=== PATIENT | male | born 1950 | race Caucasian/White ===

== ENCOUNTER 2017-03-08 07:01 | Day surgery (SDC) | payer BC ==
[2017-03-08] VITALS (9 sets, daily range): BP systolic 115–152; BP diastolic 59–82; PULSE 50–65; RESP 14–18; Ht 182.9 cm; Wt 79.0 kg
[~2017-03-08] VITALS: Ht 182.9 cm; Wt 79.0 kg
[~2017-03-08 07:01] MED LIST: SOD CHLORIDE 0.9% 1,000 ML IV SCH
[2017-03-08] MEDS ORDERED: GLYB5TAB3 PO (07:52)
[2017-03-08] MEDS ORDERED: VALS160T20 PO (07:55)
[2017-03-08] MEDS ORDERED: GLYB1TAB3 PO (07:55)
[2017-03-08] MEDS ORDERED: PRAS10TA6 PO (07:56)
[2017-03-08 08:21] LABS: ADD SCAN DIFF NO; BASOPHILS % 0.3 % (0.0-2.0); EOSINOPHILS # 0.2 10^3/ul (0.0-0.5); EOSINOPHILS % 3.3 % (0.0-7.0); HEMATOCRIT 35.8 % (42.0-52.0); HEMOGLOBIN 12.3 g/dl (14.0-18.0); LYMPHOCYTES % 32.2 % (15.0-51.0); MEAN CORPUSCULAR HEMOGLOBIN 31.8 pg (29.0-33.0); MEAN CORPUSCULAR HGB CONC 34.4 g/dl (32.0-37.0); MEAN CORPUSCULAR VOLUME 92.5 fl (82.0-101.0); MEAN PLATELET VOLUME 9.5 fl (7.4-10.4); MONOCYTE # 0.5 10^3/ul (0.3-0.9); MONOCYTES % 8.7 % (0.0-11.0); NEUTROPHIL # 3.4 10^3/ul (1.6-7.5); PLATELET COUNT 129 10^3/UL (140-415); RED BLOOD COUNT 3.87 10^6/ul (4.70-6.10); RED CELL DISTRIBUTION WIDTH 13.2 % (11.5-14.5); WHITE BLOOD COUNT 6.1 10^3/ul (4.8-10.8)
[2017-03-08] MEDS ORDERED: LIDOCAINE 1% (MDV) 20 ML INJ ONE (08:38)
[2017-03-08] MEDS ORDERED: ASPIRIN 325 MG TAB ONE (08:38)
[2017-03-08] MEDS ORDERED: HEPARIN 1000 UNITS/ML 10 ML INJ ONE (08:38)
[2017-03-08] MEDS ORDERED: VERAPAMIL 5 MG INJ ONE (08:39)
[2017-03-08] MEDS ORDERED: NITROGLYCERIN (IC) 100 MCG/ML INJ ONE (08:39)
[2017-03-08 08:55] LABS: CALCIUM 9.7 mg/dl (8.4-10.2); CREATININE 0.97 mg/dl (0.61-1.24); INR 0.96; POTASSIUM 4.3 mmol/L (3.5-5.1); PROTIME 12.8 Sec (12.2-14.2)
[2017-03-08 08:56] LABS: PARTIAL THROMBOPLASTIN TIME 29.8 Sec (25.0-35.0)
[2017-03-08] MEDS ORDERED: FENTAnyl 50 MCG/ML VIAL ONE (08:56)
[2017-03-08] MEDS ORDERED: MIDAZOLAM 1 MG/ML 2 ML INJ ONE (08:56)
[2017-03-08] MEDS ORDERED: IODIXANOL LOCM 100 ML BTL ONE (08:57)
[2017-03-08] MEDS ORDERED: ADENOSINE 90 MG in SOD CHLORIDE 0.9% 90 ML IV SCH (10:00)
[2017-03-08] MEDS ORDERED: SOD CHLORIDE 0.9% 1,000 ML IV SCH (10:34)
[2017-03-08] MEDS ORDERED: AL HYDROX/MG HYDROX/SIMETH 30 ML CUP PO PRN (11:00)
[2017-03-08] MEDS ORDERED: INSULIN REGULAR, HUMAN 100 UNIT/1 ML 3ML VIAL SC ONE (11:00)
[2017-03-08] MEDS ORDERED: ONDANSETRON 4 MG INJ IV PRN (11:00)
--- NOTE | 2017-03-08 11:37 | OPR ---
DATE OF OPERATION: 03/08/2017 GERIATRIC CARE MANAGER: Jose F Reilly MD PRIMARY GOVERNMENT PROPERTY INSPECTOR: Destin Lawrence MD PROCEDURES PERFORMED: 1. Left heart catheterization. 2. FFR study of the left main, left anterior descending. 3. IVUS study of the left main, left anterior descending. PREOPERATIVE DIAGNOSES: 1. Coronary artery disease. 2. Smoking. 3. Diabetes. 4. Status post PCI. POSTOPERATIVE DIAGNOSIS: 1. Obstructive coronary artery disease involving the left main. HISTORY: Mr. Haddad is a 66-year-old Palestinian man with past medical history of diabetes, hypertension, hyperlipidemia and recent PCI to the LAD as well as diagonal artery at [facility]. The patient follows with Dr. Destin Lawrence who evaluated the patient and noted the patient and continued significant exertional chest pain c/w CCS III angina. He was therefore referred to cardiac catheterization lab, given his medical history. All risks, benefits were explained to patient prior to arrival in catheterization lab. PROCEDURE DESCRIPTION: Right wrist was prepped and draped in usual sterile fashion and anesthetized with 1% lidocaine solution. A 6-Burmese Slender sheath was placed in the right radial artery without difficulty using the through and through technique. Intra -arterial nitroglycerin and verapamil were given. IV heparin was given. Cineangiograms were then obtained of the left and right coronary artery using a 5-Burmese TIG 4.0 catheter. The catheter was then advanced over a wire to the left ventricle and pressures were obtained. Given left main disease, decision was made to proceed with FFR study and possible IVUS study. FFR procedure description: Additional IV heparin was given and ACT was checked and confirmed to be in therapeutic range. The TIG catheter had been removed and exchanged for a 6-Burmese FL3.5 guiding catheter. This was used to engage the left coronary. There was significant dampening noted upon engagement of the left coronary. An FFR wire was then introduced into the ascending aorta and normalized as per protocol. The FFR wire was then advanced to the left circumflex and adenosine infusion started at 180 mcg/kg per minute IV and lowest FFR value of the left main to the circumflex was 0.78. The FFR wire was then withdrawn and advanced to the distal LAD and FFR value of 0.62 was obtained. At this point, it is evident this was significant left main disease and IVUS study was then performed of the LAD and left main over the FFR wire. The IVUS catheter was then removed. Given severe disease and questionable compliance with medication as well as smoking history, diabetes decision was made to stop at this point and discuss risks, benefits of percutaneous versus bypass surgery with patient and family prior to PCI. The patient was in stable condition. There were no complications. All wires and catheters removed. Hemostasis obtained with a TR band. ESTIMATED BLOOD LOSS: Less than 20 mL. FINDINGS: HEMODYNAMICS: LVEDP is 19 mmHg. No significant gradient on LV to AO pullback. CORONARY ANATOMY: 1. Left main with ostial proximal 60% stenosis. On IVUS study MLA is 6.2 mm2. The mid left main has a diameter of 4.5 x 3.8 mm. 2. Left anterior descending artery is a large wraparound artery. Proximal has a 40% to 50% stenosis and a large diagonal 1 branch. This is followed by a patent stent with moderate in-stent restenosis about 50%. There is JOSE MIGUEL 3 flow throughout the vessel. The distal LAD has mild luminal irregularities. There is a large D1 branch without disease. Smaller D2 branch is jailed by the LAD stent with an ostial 60% stenosis. There is a D3 branch which is long and extends to the apex. There is a proximal stent which is widely patent. The IVUS study showed good expansion and apposition of the mid LAD stent. 3. Left circumflex: Small nondominant artery without significant disease. 4. Right coronary artery: A large, dominant artery. The proximal has 20% disease. The mid RCA with 20% disease and distal RCA branches early into large RPDA and RPL branches which are with luminal irregularities. FFR STUDY RESULTS: 1. Left main FFR study with wire in left circumflex 0.78. FFR LM/LAD with wire in mid LAD is 0.62. SUMMARY: 1. Obstructive coronary artery disease with history of PCI with the mid LAD which is patent with moderate ISR. 2. Significant ostial with proximal left main stenosis 60% with abnormal FFR study. 3. Mild to moderate elevated left ventricular filling pressures. RECOMMENDATIONS: Risks, benefits discussed with patient and family. The decision is made to proceed with left main stenting. The patient is adamant that he is compliant with medications; however, continues to smoke. Smoking cessation is urged. Risks, benefits of coronary artery bypass graft also discussed with the family; however, they would like to avoid surgical procedure this time. We will plan for DATA ASSISTANT left main; however, would like to add statin and beta salvatore therapy prior to procedure. 1. Continue aspirin 81 mg daily as well as Effient 10 mg daily. 2.. Continue valsartan. 3. Add a moderate dose statin as well as beta salvatore therapy. 4. Return for PCI of ostial LM The above findings were discussed with the patient's primary development analyst, Dr. Lawrence, who was in agreement with treatment plan. Dictated By: JOSE F HUTCHINS/RENO Conf#: [id number] DID#: [id number] MTDD
== END 2017-03-08 14:07 | disposition home or self-care (01) ==
LOC: SDS 07:01
PROVIDERS: ATTEND Internal Medicine Interventional Cardiology
DX: I25.10 Atherosclerotic heart disease of native coronary artery without angina pectoris (principal); E11.9 Type 2 diabetes mellitus without complications; I10 Essential (primary) hypertension
CPT/HCPCS: 80048; 82962; 85025; 85610; 85730; 93458; C1769; C1887; J0153; J1644; J1815; J2250; J3010; Q9967

== ENCOUNTER 2017-03-22 14:06 | Observation (INO) | payer BC ==
[~2017-03-22] VITALS: Ht 182.9 cm; Wt 79.0 kg
[2017-03-22] VITALS (10 sets, daily range): BP systolic 111–175; BP diastolic 59–84; PULSE 55–66; RESP 13–20
[~2017-03-22 14:06] MED LIST changes: +GLYB1TAB3 PO; +GLYB5TAB3 PO; +PRAS10TA6 PO; -SOD CHLORIDE 0.9% 1,000 ML IV SCH; +VALS160T20 PO
[2017-03-22 14:37] LABS: ADD SCAN DIFF NO
[2017-03-22] MEDS ORDERED: ATOR40TA68 PO (14:49)
[2017-03-22] MEDS ORDERED: MAGN400T28 PO (14:49)
[2017-03-22] MEDS ORDERED: CHOL500016 PO (14:49)
[2017-03-22] MEDS ORDERED: CLOPIDOGREL 300 MG TAB ONE (14:51)
[2017-03-22] MEDS ORDERED: LIDOCAINE 1% (MDV) 20 ML INJ ONE (14:51)
[2017-03-22] MEDS ORDERED: SOD CHLORIDE 0.9% 500 ML ONE (14:51)
[2017-03-22] MEDS ORDERED: HEPARIN 1000 UNITS/ML 10 ML INJ ONE (14:51)
[2017-03-22] MEDS ORDERED: IODIXANOL LOCM 100 ML BTL ONE (14:51)
[2017-03-22] MEDS ORDERED: ASPIRIN 325 MG TAB ONE (14:51)
[2017-03-22] MEDS ORDERED: MIDAZOLAM 1 MG/ML 2 ML INJ ONE (14:52)
[2017-03-22] MEDS ORDERED: FENTAnyl 50 MCG/ML VIAL ONE (14:52)
[2017-03-22] MEDS ORDERED: EMPA10TA PO (14:53)
[2017-03-22 14:56] LABS: INR 0.95; PROTIME 12.7 Sec (12.2-14.2)
[2017-03-22] MEDS ORDERED: ASPI-664 PO (14:56)
[2017-03-22 14:57] LABS: PARTIAL THROMBOPLASTIN TIME 30.2 Sec (25.0-35.0)
[2017-03-22] MEDS ORDERED: NITROGLYCERIN (IC) 100 MCG/ML INJ ONE (14:59)
[2017-03-22 15:01] LABS: ALBUMIN 4.9 g/dl (3.3-4.9); ALBUMIN/GLOBULIN RATIO 1.36; BILIRUBIN,INDIRECT 0.2 mg/dl (0-1.1); BILIRUBIN,TOTAL 0.2 mg/dl (0.2-1.3); TOTAL PROTEIN 8.5 g/dl (6.1-8.1)
[2017-03-22 15:04] LABS: CALCIUM 10.2 mg/dl (8.4-10.2); CREATININE 1.08 mg/dl (0.61-1.24)
[2017-03-22 15:09] LABS: POTASSIUM 5.3 mmol/L (3.5-5.1)
[2017-03-22 15:13] LABS: BASOPHILS % 0.2 % (0.0-2.0); EOSINOPHILS # 0.1 10^3/ul (0.0-0.5); EOSINOPHILS % 1.8 % (0.0-7.0); HEMATOCRIT 38.7 % (42.0-52.0); HEMOGLOBIN 13.4 g/dl (14.0-18.0); LYMPHOCYTES # 1.9 10^3/ul (0.8-2.9); LYMPHOCYTES % 31.1 % (15.0-51.0); MEAN CORPUSCULAR HEMOGLOBIN 31.9 pg (29.0-33.0); MEAN CORPUSCULAR HGB CONC 34.6 g/dl (32.0-37.0); MEAN CORPUSCULAR VOLUME 92.1 fl (82.0-101.0); MEAN PLATELET VOLUME 9.7 fl (7.4-10.4); MONOCYTE # 0.5 10^3/ul (0.3-0.9); MONOCYTES % 7.9 % (0.0-11.0); NEUTROPHIL # 3.5 10^3/ul (1.6-7.5); NEUTROPHILS % 58.7 % (39.0-77.0); PLATELET COUNT 141 10^3/UL (140-415); RED CELL DISTRIBUTION WIDTH 12.6 % (11.5-14.5)
[2017-03-22] MEDS ORDERED: SOD CHLORIDE 0.9% 1,000 ML IV SCH (16:39)
[2017-03-22] MEDS ORDERED: ACETAMINOPHEN 325 MG TAB PO PRN (17:00)
[2017-03-22] MEDS ORDERED: ONDANSETRON 4 MG INJ IV PRN (17:00)
[2017-03-22] MEDS ORDERED: AL HYDROX/MG HYDROX/SIMETH 30 ML CUP PO PRN (17:00)
[2017-03-22] MEDS ORDERED: OXYCODONE/ACETAMINOPHEN (5/325) TAB PO PRN (17:00)
--- NOTE | 2017-03-22 17:32 | OPR ---
Date/Time of Note Date/Time of Note DATE: 03/22/17 TIME: 17:22 Operative Report Free Text/Dictation OPERATIVE REPORT DATE OF OPERATION: 03/22/2017 SAMPLE SAWYER: Jose F Reilly MD PRIMARY PLANT BIOLOGY PROFESSOR: Destin Lawrence MD PROCEDURES PERFORMED: 1. Left heart catheterization. 2. Percutaneous coronary intervention of left main artery 3. IVUS study of the left main artery PREOPERATIVE DIAGNOSES: 1. Coronary artery disease. 2. Smoking. 3. Diabetes. 4. Status post PCI. POSTOPERATIVE DIAGNOSIS: 1. Successful PCI of LM artery with NANCY x 1 HISTORY: Mr. Haddad is a 66-year-old Indonesian man with past medical history of diabetes, hypertension, hyperlipidemia and recent PCI to the LAD as well as diagonal artery at [facility]. The patient follows with Dr. Destin Lawrence who evaluated the patient and noted the patient and continued significant exertional chest pain c/w CCS III angina despite medical therapy. He was therefore referred to cardiac catheterization lab on 03/08/2017 and found to have significant ostial LM disease. Risks benefits of PCI vs. CABG were discussed with family and who agreed to proceed with PCI of ostial LM. All risks, benefits were explained to patient prior to arrival in catheterization lab. PROCEDURE DESCRIPTION: Right groin was prepped and draped in usual sterile fashion and anesthetized with 1% lidocaine solution. A 6-Kinyarwanda sheath was placed in the right femoral artery without difficulty under ultrasound guidance using the modified Seldinger technique. IV heparin boluses were given and ACT was checked and confirmed to be in therapeutic range. 6 Fr FL4 guiding catheter was advanced to ascending aorta and cineangiograms were then obtained of the left coronary artery. A 180cm 0.014" runthrough wire was advanced to distal LAD. A 3.0 x 8mm balloon was advanced to LM and inflated to 10 boo x 1. The balloon was exchanged for a 4.0 x 8mm Synergy Drug Eluting Stent which was deployed at 16atm at ostial LM successfully. Stent balloon was then used for post dilation with inflation x 1. The balloon was removed and exchanged for 4.5 x 8mm NC balloon which was inflated to high pressure in proximal stent to flare stent edge. NC balloon removed and exchanged for UC CEIN IVUS catheter which was used to perform IVUS study of LM stent. There was good stent expansion and apposition on IVUS study. All catheters and wires were removed and final angiograms obtained showing good stent apposition/expansion without complications. Pt was chest pain free at conclusion of procedure. RFA angiogram showed correct sheath placement in mid right military pilot with mild atherosclerosis. Hemostasis then obtained with perclose closure device. ESTIMATED BLOOD LOSS: Less than 50 mL. SPECIMENS: NONNE FINDINGS: HEMODYNAMICS: LVEDP is 9 mmHg. No significant gradient on LV to AO pullback. CORONARY ANATOMY: 1. Left main with ostial proximal 60% stenosis. 2. Left anterior descending artery is a large wraparound artery. Proximal has a 40% to 50% stenosis and a large diagonal 1 branch. This is followed by a patent stent with moderate in-stent restenosis about 50%. There is ZAHRA 3 flow throughout the vessel. The distal LAD has mild luminal irregularities. There is a large D1 branch without disease. Smaller D2 branch is jailed by the LAD stent with an ostial 60% stenosis. There is a D3 branch which is long and extends to the apex. There is a proximal stent which is widely patent. The IVUS study showed good expansion and apposition of the mid LAD stent. 3. Left circumflex: Small nondominant artery without significant disease. 4. Right coronary artery: not engaged PCI results 1) Ostial LM- s/p PCI with Synergy 4.0 x 8mm NANCY post dilated with 4.5mm NC balloon - pre stenosis 60%, post stenosis 0%. Pre zahra flow 3, post zahra flow 3 - IVUS study post PCI showing good stent apposition/expansion. SUMMARY: 1. Obstructive coronary artery disease with history of PCI with the mid LAD which is patent with moderate ISR. 2. Successful PCI of ostial LM with NANCY x 1 3. Normal left ventricular filling pressures. RECOMMENDATIONS: 1. Continue aspirin 81 mg daily as well as Effient 10 mg daily. 2.. Continue valsartan. 3. Maximal CAD RF modification 4. Consider outpatient referral to cardiac rehab JOSE F REILLY Mar 22, 2017 17:32
[2017-03-22] MEDS: INSULIN ASPART [NOVOLOG] 3 ML PEN SC SCH ×2 (17:51→20:43)
[2017-03-22] MEDS ORDERED: GLUCAGON 1 MG INJ IM PRN (18:00)
[2017-03-22] MEDS ORDERED: GLUCOSE GEL 15 GRAM TUBE BUCCAL PRN (18:00)
[2017-03-22] MEDS ORDERED: GLUCOSE GEL 15 GRAM TUBE PO PRN ×2 (18:00)
[2017-03-22] MEDS ORDERED: DEXTROSE 50% 50 ML SYRINGE IV PRN ×2 (18:00)
--- NOTE | 2017-03-22 18:33 | CONS ---
Date/Time of Note Date/Time of Note DATE: 03/22/17 TIME: 18:22 Assessment/Plan Assessment/Plan Chief Complaint/Hosp Course Assessment and plan: 66-year-old English man with past medical history of diabetes, hypertension, hyperlipidemia and recent PCI to the LAD, with successful stenting to the left main artery today. 1. Obstructive coronary artery disease with history of PCI with the mid LAD which is patent with moderate ISR with successful PCI of ostial LM with NANCY x 1 Continue current medications per cardiology team, follow-up labs in the morning, follow cardiology recommendations 2. diabetes: We will check A1c, add moderate insulin sliding scale 3. High cholesterol: Continue statin We will continue to follow along with you. Problems: Consultation Date/Type/Reason Admit Date/Time Reason for Consultation Medical management Hx of Present Illness Mr. Haddad is a 66-year-old English man with past medical history of diabetes, hypertension, hyperlipidemia and recent PCI to the LAD as well as diagonal artery at [facility]. The patient follows with Dr. Destin Lawrence who evaluated the patient and noted the patient and continued significant exertional chest pain c/w CCS III angina despite medical therapy. He was therefore referred to cardiac catheterization lab on 03/08/2017 and found to have significant ostial LM disease. Risks benefits of PCI vs. CABG were discussed with family and who agreed to proceed with PCI of ostial LM. Cardiology team asked for medical management given patient's past history of diabetes and hypertension. No upper or lower GI bleeding, fevers or chills, nausea vomiting, diarrhea or constipation, or shortness of breath Past Medical History Medical History: coronary artery disease, diabetes, high cholesterol, hypertension Social History Smoking Status: Former smoker Exam/Review of Systems Vital Signs Vitals Vital Signs Date Time Temp Pulse Resp B/P Pulse Ox O2 Delivery O2 Flow Rate FiO2 03/22/17 18:00 56 17 121/62 97 Room Air 03/22/17 17:00 97.7 Exam General: Patient lying in bed, no acute distress HEENT: Pupils equal round reactive to light extraocular muscles intact Neck: Supple Lungs: Clear to auscultation bilaterally Cardiovascular: S1-S2 heard no rubs or gallops GI: Nontender nondistended normal bowel sounds no rebound or guarding Musculoskeletal: No lower extremity edema bilaterally Neurologic: No focal deficits Results Result Diagram: 03/22/17 1435 03/22/17 1435 Results 24 hrs Laboratory Tests Test 03/22/17 14:35 White Blood Count 6.0 Red Blood Count 4.20 L Hemoglobin 13.4 L Hematocrit 38.7 L Mean Corpuscular Volume 92.1 Mean Corpuscular Hemoglobin 31.9 Mean Corpuscular Hemoglobin Concent 34.6 Red Cell Distribution Width 12.6 Platelet Count 141 Mean Platelet Volume 9.7 Neutrophils % 58.7 Lymphocytes % 31.1 Monocytes % 7.9 Eosinophils % 1.8 Basophils % 0.2 Nucleated Red Blood Cells % 0.0 Neutrophils # 3.5 Lymphocytes # 1.9 Monocytes # 0.5 Eosinophils # 0.1 Basophils # 0.0 Nucleated Red Blood Cells # 0.0 Prothrombin Time 12.7 Prothrombin Time Ratio 1.0 INR International Normalized Ratio 0.95 Activated Partial Thromboplast Time 30.2 Sodium Level 137 Potassium Level 5.3 H Chloride Level 99 Carbon Dioxide Level 27 Anion Gap 16 Blood Urea Nitrogen 22 H Creatinine 1.08 Glucose Level 274 H Calcium Level 10.2 Total Bilirubin 0.2 Direct Bilirubin 0.00 Indirect Bilirubin 0.2 Aspartate Amino Transf (AST/SGOT) 42 Alanine Aminotransferase (ALT/SGPT) 46 Alkaline Phosphatase 76 Total Protein 8.5 H Albumin 4.9 Globulin 3.60 H Albumin/Globulin Ratio 1.36 Medications Medications Current Medications Aspirin (Halfprin) 81 mg DAILY PO ; Start 03/23/17 at 09:00 Atorvastatin Calcium (Lipitor) 40 mg QHS PO ; Start 03/22/17 at 21:00 Empaglifozin (Jardiance) 10 mg DAILY PO ; Start 03/23/17 at 09:00 Magnesium Oxide (Mag-Ox 400) 400 mg BID PO ; Start 03/22/17 at 21:00 Prasugrel (Effient) 10 mg DAILY PO ; Start 03/22/17 at 17:00 Valsartan (Diovan) 160 mg DAILY PO ; Start 03/23/17 at 09:00 Miscellaneous Information (* Miscellaneous Pharmacy Order) Hold all Metformin ... ONCE XX Last administered on 03/22/17t 17:04; Admin Dose 1 EA; Start at 17:00; Stop 03/24/17 at 16:59 Acetaminophen (Tylenol Tab) 650 mg Q4H PRN PO NON-CARDIAC PAIN LEVEL 1-3; Start 03/22/17 at 17:00 Oxycodone/ Acetaminophen (Percocet (5/ 325)) 1 tab Q4H PRN PO REPORTED NON- CARDIAC PAIN 4-7; Start 03/22/17 at 17:00 Al Hydrox/Mg Hydrox/Simethicone (Mag-Al Plus) 30 ml Q4H PRN PO GASTROINTESTINAL UPSET; Start 03/22/17 at 17:00 Ondansetron HCl 4 mg 4 mg Q4H PRN IV NAUSEA AND/OR VOMITING; Start 03/22/17 at 17:00 Sodium Chloride (NS) 1,000 ml @ 125 mls/hr Q8H IV Last administered on t 17:33; Admin Dose 125 MLS/HR; Start 03/22/17 at 16:39; Stop 03/22/17 at 21:38 Miscellaneous Information 1 ea NOTE XX ; Start 03/22/17 at 18:00 Glucose (Glutose) 15 gm Q15M PRN PO DECREASED GLUCOSE; Start 03/22/17 at 18:00 Glucose (Glutose) 22.5 gm Q15M PRN PO DECREASED GLUCOSE; Start 03/22/17 at 18:00 Dextrose (D50w Syringe) 25 ml Q15M PRN IV DECREASED GLUCOSE; Start 03/22/17 at 18:00 Dextrose (D50w Syringe) 50 ml Q15M PRN IV DECREASED GLUCOSE; Start 03/22/17 at 18:00 Glucagon (Glucagen) 1 mg Q15M PRN IM DECREASED GLUCOSE; Start 03/22/17 at 18:00 Glucose (Glutose) 15 gm Q15M PRN BUCCAL DECREASED GLUCOSE; Start 03/22/17 at 18: 00 SUNDEEP BARRON Mar 22, 2017 18:33
[2017-03-22] MEDS: MAGNESIUM OXIDE 400 MG TAB PO SCH (20:33)
[2017-03-22] MEDS: PRASUGREL HYDROCHLORIDE 10 MG TABLET PO SCH (20:33)
[2017-03-22] MEDS ORDERED: ATORVASTATIN 40 MG TAB PO SCH (21:00)
[2017-03-23] VITALS (9 sets, daily range): BP systolic 115–154; BP diastolic 58–71; PULSE 52–65; RESP 12–17
[2017-03-23 05:45] LABS: ADD SCAN DIFF NO
[2017-03-23 05:48] LABS: BASOPHILS % 0.4 % (0.0-2.0); EOSINOPHILS # 0.1 10^3/ul (0.0-0.5); EOSINOPHILS % 2.4 % (0.0-7.0); HEMATOCRIT 34.3 % (42.0-52.0); HEMOGLOBIN 12.1 g/dl (14.0-18.0); LYMPHOCYTES # 1.3 10^3/ul (0.8-2.9); LYMPHOCYTES % 26.7 % (15.0-51.0); MEAN CORPUSCULAR HEMOGLOBIN 32.5 pg (29.0-33.0); MEAN CORPUSCULAR HGB CONC 35.3 g/dl (32.0-37.0); MEAN CORPUSCULAR VOLUME 92.2 fl (82.0-101.0); MEAN PLATELET VOLUME 10.1 fl (7.4-10.4); MONOCYTE # 0.4 10^3/ul (0.3-0.9); MONOCYTES % 8.6 % (0.0-11.0); NEUTROPHIL # 3.1 10^3/ul (1.6-7.5); NEUTROPHILS % 61.3 % (39.0-77.0); PLATELET COUNT 129 10^3/UL (140-415); RED BLOOD COUNT 3.72 10^6/ul (4.70-6.10); RED CELL DISTRIBUTION WIDTH 12.6 % (11.5-14.5)
[2017-03-23 06:03] LABS: PROTIME 13.2 Sec (12.2-14.2)
[2017-03-23 06:12] LABS: CALCIUM 9.9 mg/dl (8.4-10.2); CHOL/HDL RATIO 5.3 RATIO; CREATININE 0.96 mg/dl (0.61-1.24); POTASSIUM 5.3 mmol/L (3.5-5.1)
[2017-03-23] MEDS: INSULIN ASPART [NOVOLOG] 3 ML PEN SC SCH (07:36)
--- NOTE | 2017-03-23 08:09 | PN ---
Date/Time of Note Date/Time of Note DATE: 03/23/17 TIME: 08:04 Assessment/Plan VTE Prophylaxis VTE Prophylaxis Intervention: ambulation Lines/Catheters IV Catheter Type (from Nrs): Peripheral IV Assessment/Plan Chief Complaint/Hosp Course Impression: 1) CAD s/p elective LM stenting with NANCY x 1 - cont asa 81mg daily indefinitely - cont prasugrel 10mg daily as long as tolerated - continue statin - unable to tolerate bb due to resting sinus pam - cont arb for bp control 2) DM2 - hold metformin for 48hrs post procedure - ok to cont other dm2 meds 3) smoking - cessation recommended d/w patient - ok to discharge home with follow up with Dr. Lawrence or myself in clinic next week. Problems: Subjective 24 Hr Interval Summary Free Text/Dictation no acute events. pt stable overnight. reports tolerating po, no bleeding. had some brief cp this am, mild. no associated symptoms. tele reivewed sinus pam, no events. Constitutional: no complaints Eyes: no complaints ENT: no complaints Respiratory: no complaints Cardiovascular: chest pain Gastrointestinal: no complaints Exam/Review of Systems Vital Signs Vitals Vital Signs Date Time Temp Pulse Resp B/P Pulse Ox O2 Delivery O2 Flow Rate FiO2 03/23/17 04:00 55 03/23/17 04:00 98.2 16 143/62 97 Room Air Intake and Output 03/22/17 03/22/17 03/23/17 15:00 23:00 07:00 Intake Total 1288 ml 250 ml Output Total 1500 ml Balance 1288 ml -1250 ml Exam Constitutional: alert, oriented Psych: nl mood/affect, no complaints Head: normocephalic Eyes: EOMI, nl conjunctiva ENMT: mucosa pink and moist, nl external ears & nose Neck: non-tender, supple, No jvd Respiratory: clear to auscultation, normal air movement Cardiovascular: nl pulses, regular rate and rhythm, No S3, No S4, No systolic murmur Gastrointestinal: non-tender, soft Musculoskeletal: nl extremities to inspection, nl gait and stance Extremities: normal pulses, other (R groin 2+ femoral, dp. no bruit. no bruising) Neurological: HOMEOWNER ASSOCIATION MANAGER II-XII intact, nl mental status, nl speech, nl strength Results Result Diagram: 7/6/17 0440 7/6/17 0440 Results 24 hrs Laboratory Tests Test 03/22/17 14:34 03/22/17 14:35 03/22/17 20:36 03/23/17 04:40 Hemoglobin A1c 10.7 H White Blood Count 6.0 5.0 Red Blood Count 4.20 L 3.72 L Hemoglobin 13.4 L 12.1 L Hematocrit 38.7 L 34.3 L Mean Corpuscular Volume 92.1 92.2 Mean Corpuscular Hemoglobin 31.9 32.5 Mean Corpuscular Hemoglobin Concent 34.6 35.3 Red Cell Distribution Width 12.6 12.6 Platelet Count 141 129 L Mean Platelet Volume 9.7 10.1 Neutrophils % 58.7 61.3 Lymphocytes % 31.1 26.7 Monocytes % 7.9 8.6 Eosinophils % 1.8 2.4 Basophils % 0.2 0.4 Nucleated Red Blood Cells % 0.0 0.0 Neutrophils # 3.5 3.1 Lymphocytes # 1.9 1.3 Monocytes # 0.5 0.4 Eosinophils # 0.1 0.1 Basophils # 0.0 0.0 Nucleated Red Blood Cells # 0.0 0.0 Prothrombin Time 12.7 13.2 Prothrombin Time Ratio 1.0 1.0 INR International Normalized Ratio 0.95 1.00 Activated Partial Thromboplast Time 30.2 Sodium Level 137 138 Potassium Level 5.3 H 5.3 H Chloride Level 99 99 Carbon Dioxide Level 27 28 Anion Gap 16 16 Blood Urea Nitrogen 22 H 23 H Creatinine 1.08 0.96 Glucose Level 274 H 252 H Calcium Level 10.2 9.9 Total Bilirubin 0.2 Direct Bilirubin 0.00 Indirect Bilirubin 0.2 Aspartate Amino Transf (AST/SGOT) 42 Alanine Aminotransferase (ALT/SGPT) 46 Alkaline Phosphatase 76 Total Protein 8.5 H Albumin 4.9 Globulin 3.60 H Albumin/Globulin Ratio 1.36 Bedside Glucose 292 H Triglycerides Level 131 Cholesterol Level 145 LDL Cholesterol, Calculated 92 HDL Cholesterol 27 L Cholesterol/HDL Ratio 5.3 Test 03/23/17 07:33 Bedside Glucose 275 H Medications Medications Current Medications Aspirin (Halfprin) 81 mg DAILY PO ; Start 03/23/17 at 09:00 Atorvastatin Calcium (Lipitor) 40 mg QHS PO Last administered on 03/22/17t 20:33 ; Admin Dose 40 MG; Start 03/22/17 at 21:00 Empaglifozin (Jardiance) 10 mg DAILY PO ; Start 03/23/17 at 09:00 Magnesium Oxide (Mag-Ox 400) 400 mg BID PO Last administered on 03/22/17 20:33 ; Admin Dose 400 MG; Start 03/22/17 at 21:00 Prasugrel (Effient) 10 mg DAILY PO Last administered on 03/22/17 20:33; Admin Dose 10 MG; Start 03/22/17 at 17:00 Valsartan (Diovan) 160 mg DAILY PO ; Start 03/23/17 at 09:00 Miscellaneous Information (* Miscellaneous Pharmacy Order) Hold all Metformin ... ONCE XX Last administered on 03/22/17 17:04; Admin Dose 1 EA; Start at 17:00; Stop 03/24/17 at 16:59 Acetaminophen (Tylenol Tab) 650 mg Q4H PRN PO NON-CARDIAC PAIN LEVEL 1-3; Start 03/22/17 at 17:00 Oxycodone/ Acetaminophen (Percocet (5/ 325)) 1 tab Q4H PRN PO REPORTED NON- CARDIAC PAIN 4-7; Start 03/22/17 at 17:00 Al Hydrox/Mg Hydrox/Simethicone (Mag-Al Plus) 30 ml Q4H PRN PO GASTROINTESTINAL UPSET; Start 03/22/17 at 17:00 Ondansetron HCl (Zofran Inj) 4 mg Q4H PRN IV NAUSEA AND/OR VOMITING; Start 03/22 at 17:00 Miscellaneous Information 1 ea NOTE XX ; Start 03/22/17 at 18:00 Glucose (Glutose) 15 gm Q15M PRN PO DECREASED GLUCOSE; Start 03/22/17 at 18:00 Glucose (Glutose) 22.5 gm Q15M PRN PO DECREASED GLUCOSE; Start 03/22/17 at 18:00 Dextrose (D50w Syringe) 25 ml Q15M PRN IV DECREASED GLUCOSE; Start 03/22/17 at 18:00 Dextrose (D50w Syringe) 50 ml Q15M PRN IV DECREASED GLUCOSE; Start 03/22/17 at 18:00 Glucagon (Glucagen) 1 mg Q15M PRN IM DECREASED GLUCOSE; Start 03/22/17 at 18:00 Glucose (Glutose) 15 gm Q15M PRN BUCCAL DECREASED GLUCOSE; Start 03/22/17 at 18: 00 JULISSA ASHLEY Mar 23, 2017 08:09
[2017-03-23] MEDS: MAGNESIUM OXIDE 400 MG TAB PO SCH (08:37)
[2017-03-23] MEDS: PRASUGREL HYDROCHLORIDE 10 MG TABLET PO SCH (08:37)
[2017-03-23] MEDS ORDERED: ASPIRIN (EC) 81 MG TAB PO SCH (09:00)
[2017-03-23] MEDS ORDERED: EMPAGLIFLOZIN 10 MG TABLET PO SCH (09:00)
[2017-03-23] MEDS ORDERED: VALSARTAN 160 MG TAB PO SCH (09:00)
--- NOTE | 2017-03-23 09:48 | PDOCDIS ---
Discharge Instructions CONDITION Patient Condition: Stable HOME CARE INSTRUCTIONS: Special Diet: CARB CONTROLLED ACTIVITY: Activity Restrictions: Slowly Increase Activity SUNDEEP BARRON Mar 23, 2017 09:48
[2017-03-23] MEDS ORDERED: VALS160T20 PO (09:49)
--- NOTE | 2017-03-23 09:55 | DS ---
Date/Time of Note Date/Time of Note DATE: 03/23/17 TIME: 09:51 Discharge Summary Admission/Discharge Info Admit Date/Time Mar 22, 2017 at 16:45 Discharge Date/Time Discharge Diagnosis 1. Obstructive coronary artery disease with history of PCI with the mid LAD which is patent with moderate ISR with successful PCI of ostial LM with NANCY x 1 2. diabetes 3. High cholesterol: Continue statin Patient Condition: Stable Hospital Course Mr. Haddad is a 66-year-old [place] man with past medical history of diabetes, hypertension, hyperlipidemia and recent PCI to the LAD as well as diagonal artery at [facility]. The patient follows with Dr. Destin Lawrence who evaluated the patient and noted the patient and continued significant exertional chest pain c/w CCS III angina despite medical therapy. He was therefore referred to cardiac catheterization lab on 03/08/2017 and found to have significant ostial LM disease. Risks benefits of PCI vs. CABG were discussed with family and who agreed to proceed with PCI of ostial LM. Cardiology team asked for medical management given patient's past history of diabetes and hypertension. No upper or lower GI bleeding, fevers or chills, nausea vomiting, diarrhea or constipation, or shortness of breath. Again, pt found with obstructive coronary artery disease with history of PCI with the mid LAD which is patent with moderate ISR with successful PCI of ostial LM with NANCY x 1. Pt tolerated the procedure well, VS stable, tolerating diet, and after clearance given by CV team pt to be d/c home today in improved condition. Med d/ c list please see med recon list. Pt advised to not take metformin/glyburide for 48 hrs after d/c, then resume after. Home Meds Active Scripts Valsartan* (Diovan*) 160 Mg Tablet, 160 MG PO DAILY, #30 TAB 4 Refills Prov:SUNDEEP BARRON. 03/23/17 Reported Medications Aspirin* (Aspirin* EC) 81 Mg Tablet., 81 MG PO DAILY, TAB 03/22/17 Empagliflozin (Jardiance) 10 Mg Tablet, 10 MG PO DAILY, TAB 03/22/17 Cholecalciferol (D3-50) 50,000 Unit Capsule, 76888 UNIT PO, CAP 03/22/17 Atorvastatin* (Atorvastatin*) 40 Mg Tablet, 40 MG PO QHS, #30 TAB 03/22/17 Magnesium Oxide* (Magnesium Oxide*) 400 Mg Tablet, 400 MG PO BID, TAB 03/22/17 Prasugrel Hydrochloride* (Effient*) 10 Mg Tablet, 10 MG PO DAILY, TAB 03/08/17 Glyburide/Metformin HCl (Glucovance 5-500 mg Tablet) 1 Each Tablet, 1 EACH PO BID, TAB 03/08/17 Glyburide* (Glyburide*) 5 Mg Tablet, 5 MG PO BID, #[address] ZIMMERMAN START TAKING GLYBURIDE 2 DAYS BEFORE CATH AND HOLD GLYBURIDE-METFORMIN 03/08/17 Primary Care Provider Not On Staff Doctor Pending Labs Laboratory Tests Test 03/22/17 14:34 03/22/17 14:35 03/22/17 20:36 03/23/17 04:40 Hemoglobin A1c 10.7% (0-5.9) White Blood Count 6.010^3/ul (4.8-10.8) 5.010^3/ul (4.8-10.8) Red Blood Count 4.2010^6/ul (4.70-6.10) 3.7210^6/ul (4.70-6.10) Hemoglobin 13.4g/dl (14.0-18.0) 12.1g/dl (14.0-18.0) Hematocrit 38.7% (42.0-52.0) 34.3% (42.0-52.0) Mean Corpuscular Volume 92.1fl (82.0-101.0) 92.2fl (82.0-101.0) Mean Corpuscular Hemoglobin 31.9pg (29.0-33.0) 32.5pg (29.0-33.0) Mean Corpuscular Hemoglobin Concent 34.6g/dl (32.0-37.0) 35.3g/dl (32.0-37.0) Red Cell Distribution Width 12.6% (11.5-14.5) 12.6% (11.5-14.5) Platelet Count 29002^3/UL (140-415) 12291^3/UL (140-415) Mean Platelet Volume 9.7fl (7.4-10.4) 10.1fl (7.4-10.4) Neutrophils % 58.7% (39.0-77.0) 61.3% (39.0-77.0) Lymphocytes % 31.1% (15.0-51.0) 26.7% (15.0-51.0) Monocytes % 7.9% (0.0-11.0) 8.6% (0.0-11.0) Eosinophils % 1.8% (0.0-7.0) 2.4% (0.0-7.0) Basophils % 0.2% (0.0-2.0) 0.4% (0.0-2.0) Nucleated Red Blood Cells % 0.0/100WBC (0.0-0.0) 0.0/100WBC (0.0-0.0) Neutrophils # 3.510^3/ul (1.6-7.5) 3.110^3/ul (1.6-7.5) Lymphocytes # 1.910^3/ul (0.8-2.9) 1.310^3/ul (0.8-2.9) Monocytes # 0.510^3/ul (0.3-0.9) 0.410^3/ul (0.3-0.9) Eosinophils # 0.110^3/ul (0.0-0.5) 0.110^3/ul (0.0-0.5) Basophils # 0.010^3/ul (0.0-0.1) 0.010^3/ul (0.0-0.1) Nucleated Red Blood Cells # 0.010^3/ul (0.0-0.0) 0.010^3/ul (0.0-0.0) Prothrombin Time 12.7Sec (12.2-14.2) 13.2Sec (12.2-14.2) Prothrombin Time Ratio 1.0 1.0 INR International Normalized Ratio 0.95 1.00 Activated Partial Thromboplast Time 30.2Sec (25.0-35.0) Sodium Level 137mmol/L (135-144) 138mmol/L (135-144) Potassium Level 5.3mmol/L (3.5-5.1) 5.3mmol/L (3.5-5.1) Chloride Level 99mmol/L (97-110) 99mmol/L (97-110) Carbon Dioxide Level 27mmol/L (21-31) 28mmol/L (21-31) Anion Gap 16 (8-16) 16 (8-16) Blood Urea Nitrogen 22mg/dl (7-20) 23mg/dl (7-20) Creatinine 1.08mg/dl (0.61-1.24) 0.96mg/dl (0.61-1.24) Glucose Level 274mg/dl (70-220) 252mg/dl (70-220) Calcium Level 10.2mg/dl (8.4-10.2) 9.9mg/dl (8.4-10.2) Total Bilirubin 0.2mg/dl (0.2-1.3) Direct Bilirubin 0.00mg/dl (0.00-0.20) Indirect Bilirubin 0.2mg/dl (0-1.1) Aspartate Amino Transf (AST/SGOT) 42IU/L (15-46) Alanine Aminotransferase (ALT/SGPT) 46IU/L (13-69) Alkaline Phosphatase 76IU/L (42-121) Total Protein 8.5g/dl (6.1-8.1) Albumin 4.9g/dl (3.3-4.9) Globulin 3.60g/dl (1.3-3.2) Albumin/Globulin Ratio 1.36 Bedside Glucose 292mg/dL (70-220) Triglycerides Level 131mg/dl (0-149) Cholesterol Level 145mg/dl (100-200) LDL Cholesterol, Calculated 92mg/dl HDL Cholesterol 27mg/dl (30-78) Cholesterol/HDL Ratio 5.3RATIO Test 03/23/17 07:33 Bedside Glucose 275mg/dL (70-220) Microbiology Date/Time Source Procedure Growth Status 03/22/17 17:00 Nares MRSA Screen - Preliminary Screening in process Resulted SUNDEEP BARRON Mar 23, 2017 09:55
--- NOTE | 2017-03-23 11:12 | RADRPT ---
Vent Rate: 59 bpm RR Interval: 0 msec [place] Interval: 132 msec QRS Duration: 150 msec QT Interval: 432 msec QTC Interval: 427 msec P-R-T [place]: 57 - 74 - 61 degrees Sinus bradycardia Right bundle branch block Abnormal ECG Electronically Signed By: Jose F Reilly [id number]
== END 2017-03-23 11:25 | disposition home or self-care (01) ==
LOC: CCL 14:06 → ICU 16:45 → CCL 20:16
PROVIDERS: ADMIT Internal Medicine Interventional Cardiology; ATTEND Internal Medicine Interventional Cardiology
DX: I25.10 Atherosclerotic heart disease of native coronary artery without angina pectoris (principal); E11.9 Type 2 diabetes mellitus without complications; F17.200 Nicotine dependence, unspecified, uncomplicated; E78.00 Pure hypercholesterolemia, unspecified
CPT/HCPCS: 80048; 80053; 80061; 82962; 83036; 85025; 85610; 85730; 87081; 93005; C1725; C1760; C1769; C1874; C1887; C1894; C9600; G0378; J1644; J1815; J2250; J3010; J7040; Q9967